=== PATIENT | male | born 1990 | race Caucasian/White ===

== ENCOUNTER 2022-02-13 11:16 | Outpatient (CLI) | payer OTHER ==
--- NOTE | 2022-02-13 17:29 | XRay Report ---
CHEST 2 VIEWS INDICATION / CLINICAL INFORMATION: +PPD SKIN TST. COMPARISON: None available. FINDINGS: SUPPORT DEVICES: None. HEART / MEDIASTINUM: The heart size and pulmonary vasculature are normal. LUNGS / PLEURA: No significant pulmonary or pleural abnormality. No pneumothorax. ADDITIONAL FINDINGS: No significant additional findings. IMPRESSION: No acute findings. No radiographic evidence of active tuberculosis. Signer Name: Burton Wayne MD Signed: 02/13/2022 5:25 PM Workstation Name: [email or web address]
== END 2022-02-13 11:17 | disposition home or self-care (01) ==
LOC: XRAY 11:16
PROVIDERS: ATTEND Family Medicine
DX: R76.11 Nonspecific reaction to tuberculin skin test without active tuberculosis (principal)
CPT/HCPCS: 71046